=== PATIENT | female | born 1990 | race Caucasian/White ===

== ENCOUNTER 2024-05-05 08:47 | Emergency (ER) | payer MEDICAID, OTHER ==
[~2024-05-05] VITALS: Ht 167.6 cm; Wt 141.7 kg
[2024-05-05 08:54] VITALS: BP 146/102; PULSE 92; RESP 18; TEMP 97.6; O2SAT 100
[2024-05-05 10:07] VITALS: BP 128/88; PULSE 88; RESP 16; TEMP 97.6; O2SAT 100
== END 2024-05-05 10:08 | disposition home or self-care (01) ==
LOC: MED 08:47
DX: S39.012A Strain of muscle, fascia and tendon of lower back, initial encounter (principal); Z02.89 Encounter for other administrative examinations; X50.0XXA Overexertion from strenuous movement or load, initial encounter; Y92.89 Other specified places as the place of occurrence of the external cause; Y93.89 Activity, other specified; Y99.8 Other external cause status
CPT/HCPCS: 99281